=== PATIENT | female | born 1990 | race Caucasian/White ===

== ENCOUNTER 2018-11-06 00:16 | Emergency (ER) | payer OTHER ==
[~2018-11-06] VITALS: Ht 167.6 cm; Wt 99.8 kg
--- NOTE | 2018-11-06 00:20 | ED.ADGEN ---
Adult General Chief Complaint Chief Complaint ".. I think I got pink eye from my son.. it is red.. and itches.. " "It started today.. in this Lt eye'... 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 Has been exposed to sun who recently had pinkeye. Sons conjunctivitis has cleared without problem. Patient denies any history of immunosuppression. No recent travel. Is exposed ill patients. No history of trauma. No history of working with materials may fragment. Patient acuity is 20/15 in both eyes. Patient does have need of glasses for her nearsighted baseline vision. Patient does not remember her last tetanus. Patient up-to-date with other vaccinations. She has obvious left eye conjunctivitis. There is no limbus injection. Cornea is clear. Fundus is benign. Review of Systems Review of Systems Constitutional: Denies fever or chills [] Eyes: Denies change in visual acuity, redness, or eye pain [] Except with the exception of conjunctivitis and left eye HENT: Denies nasal congestion or sore throat [] Respiratory: Denies cough or shortness of breath [] Cardiovascular: No additional information not addressed in HPI [] GI: Denies abdominal pain, nausea, vomiting, bloody stools or diarrhea [] : Denies dysuria or hematuria [] Musculoskeletal: Denies back pain or joint pain [] Integument: Denies rash or skin lesions [] Neurologic: Denies headache, focal weakness or sensory changes [] Endocrine: Denies polyuria or polydipsia [] All other systems were reviewed and found to be within normal limits, except as documented in this note. Family History Family History Contributory-the exception son recently had pinkeye Current Medications Current Medications Current Medications Medications (Trade) Dose Ordered Sig/Maryan Start Time Stop Time Status Last Admin Dose Admin Diphtheria/ Tetanus/Acell Pertussis (Boostrix) 0.5 ml ONCE ONCE 11/06/18 00:45 11/06/18 01:12 DC 11/06/18 01:07 0.5 ML Erythromycin (Romycin) 0.25 inch 1X ONCE 11/06/18 00:45 11/06/18 01:12 DC 11/06/18 01:05 0.25 INCH Ketorolac Tromethamine (Acular) 1 drop 1X ONCE 11/06/18 00:45 11/06/18 01:12 DC 11/06/18 01:05 1 DROP He nursing for home meds Allergies Allergies Allergies Coded Allergies Type Severity Reaction Last Updated Verified Sulfa (Sulfonamide Antibiotics) Allergy Intermediate 11/06/18 Yes No known drug allergies Physical Exam Physical Exam Constitutional: Well developed, well nourished, no acute distress, non-toxic appearance. [] HENT: Normocephalic, atraumatic, bilateral external ears normal, oropharynx moist, no oral exudates, nose normal. [] Eyes: PERRLA, EOMI, conjunctiva normal, no discharge. [] Does have findings of conjunctivitis and left eye as per history of present illness Neck: Normal range of motion, no tenderness, supple, no stridor. [] Cardiovascular:Heart rate regular rhythm, no murmur [] Lungs & Thorax: Bilateral breath sounds clear to auscultation [] Abdomen: Bowel sounds normal, soft, no tenderness, no masses, no pulsatile masses. [] Skin: Warm, dry, no erythema, no rash. [] Back: No tenderness, no CVA tenderness. [] Extremities: No tenderness, no cyanosis, no clubbing, ROM intact, no edema. [] Neurologic: Alert and oriented X 3, normal motor function, normal sensory function, no focal deficits noted. [] Psychologic: Affect normal, judgement normal, mood normal. [] Current Patient Data Vital Signs Vital Signs Date Time Temp Pulse Resp B/P (MAP) Pulse Ox O2 Delivery O2 Flow Rate FiO2 11/06/18 00:25 98.3 85 16 100 Room Air EKG EKG [] Radiology/Procedures Radiology/Procedures [] Course & Med Decision Making Course & Med Decision Making Pertinent Labs and Imaging studies reviewed. (See chart for details). Patient do frequent hand washing. Patient to apply 1 drop of Toradol to left eye 4 times a day for irritation discomfort. Patient use a very small amount of erythromycin ointment up to 4 times a day. Patient follow-up primary care. Patient follow-up ophthalmology. Patient return if any concerns. [] Final Impression Final Impression 1. Conjunctivitis[] Dragon Disclaimer Dragon Disclaimer This electronic medical record was generated, in whole or in part, using a voice recognition dictation system. Dragon Disclaimer This chart was dictated in whole or in part using Voice Recognition software in a busy, high-work load, and often noisy Emergency Department environment. It may contain unintended and wholly unrecognized errors or omissions. Discharge Summary Visit Information Final Diagnosis Problems Medical Problems: (1) Conjunctivitis Status: Acute Brief Hospital Course Allergies Allergies Coded Allergies Type Severity Reaction Last Updated Verified Sulfa (Sulfonamide Antibiotics) Allergy Intermediate 11/06/18 Yes Vital Signs Vital Signs Date Time Temp Pulse Resp B/P (MAP) Pulse Ox O2 Delivery O2 Flow Rate FiO2 11/06/18 00:25 98.3 85 16 100 Room Air Brief Hospital Course Ms. Sorto is a 28 old female who presented with conjunctivitis in left eye Discharge Information Condition at Discharge: Improved, Stable Disposition/Orders: D/C to Home Dischare Medications Current Medications Diphtheria/ Tetanus/Acell Pertussis (Boostrix) 0.5 ml ONCE ONCE VAX IM Last administered on 11/06/18at 01:07; Admin Dose 0.5 ML; Start 11/06/18 at 00:45; Stop 11/06/18 at 01:12; Status DC Erythromycin (Romycin) 0.25 inch 1X ONCE OS Last administered on 11/06/18at 01: 05; Admin Dose 0.25 INCH; Start 11/06/18 at 00:45; Stop 11/06/18 at 01:12; Status DC Ketorolac Tromethamine (Acular) 1 drop 1X ONCE OS Last administered on at 01:05; Admin Dose 1 DROP; Start 11/06/18 at 00:45; Stop 11/06/18 at 01:12; Status DC Active Scripts Active Reported No Known Medications Prior To Admisstion (Info) Each 1 Each PRN EUFEMIA COLUNGA MD Nov 06, 2018 00:20
[2018-11-06 00:25] VITALS: BP 121/77
[2018-11-06] MEDS ORDERED: ERYTHROMYCIN 0.5% OPHTH OINTMENT 1GM TUBE. OS ONE (00:45)
[2018-11-06] MEDS ORDERED: DIPHTH,PERTUSS(ACELL),TET TOX 0.5 ML DISP.SYRIN. VAX IM ONE (00:45)
[2018-11-06] MEDS ORDERED: KETOROLAC TROMETHAMINE 0.5% OPHTH SOLUTION 3ML BOTTLE. OS ONE (00:45)
== END 2018-11-06 01:20 | disposition home or self-care (01) ==
LOC: ER 00:16
DX: H10.9 Unspecified conjunctivitis (principal); Z88.2 Allergy status to sulfonamides
CPT/HCPCS: 90471; 90715; 99283-25

== ENCOUNTER → 2019-07-31 | Outpatient (CLI) | payer OTHER ==
[2019-07-31 12:54] LABS: BASO % 1 % (0-3); EOS # 0.1 x10^3/uL (0.0-0.7); EOS % 1 % (0-3); HEMATOCRIT 39.9 % (36.0-47.0); HEMOGLOBIN 13.5 g/dL (12.0-15.5); LYMPH # 2.9 x10^3/uL (1.0-4.8); LYMPH % 38 % (24-48); MEAN CORPUSCULAR HEMOGLOBIN 31 pg (25-35); MEAN CORPUSCULAR HGB CONC 34 g/dL (31-37); MEAN CORPUSCULAR VOLUME 91 fL (79-100); MONO # 0.4 x10^3/uL (0.0-1.1); MONO % 6 % (0-9); NEUT # 4.1 x10^3uL (1.8-7.7); NEUT % 54 % (31-73); PLATELET COUNT 217 x10^3/uL (140-400); RED BLOOD COUNT 4.39 x10^6/uL (3.50-5.40); RED CELL DISTRIBUTION WIDTH 12.6 % (11.5-14.5); WHITE BLOOD COUNT 7.5 x10^3/uL (4.0-11.0)
[2019-07-31 13:22] LABS: ALBUMIN 3.6 g/dL (3.4-5.0); CALCIUM 8.8 mg/dL (8.5-10.1); CREATININE 0.6 mg/dL (0.6-1.0); POTASSIUM 3.9 mmol/L (3.5-5.1); TOTAL BILIRUBIN 0.3 mg/dL (0.2-1.0); TOTAL PROTEIN 7.3 g/dL (6.4-8.2)
== END | disposition home or self-care (01) ==
LOC: PMG 12:14
PROVIDERS: ATTEND Family Medicine
DX: Z01.810 Encounter for preprocedural cardiovascular examination (principal)
CPT/HCPCS: 36415; 80053; 84443; 85025

== ENCOUNTER → 2020-01-12 | Outpatient (CLI) | payer OTHER | END | disposition home or self-care (01) | LOC: LAB 07:31 | PROVIDERS: ATTEND Internal Medicine Cardiovascular Disease | DX: Z01.818 Encounter for other preprocedural examination (principal); Z11.59 Encounter for screening for other viral diseases | CPT/HCPCS: 87635 ==

== ENCOUNTER → 2020-03-19 | Outpatient (CLI) | payer OTHER ==
[2020-03-19 15:07] LABS: BASO % 1 % (0-3); EOS # 0.1 x10^3/uL (0.0-0.7); EOS % 1 % (0-3); HEMATOCRIT 41.1 % (36.0-47.0); LYMPH # 2.5 x10^3/uL (1.0-4.8); LYMPH % 34 % (24-48); MEAN CORPUSCULAR HEMOGLOBIN 31 pg (25-35); MEAN CORPUSCULAR HGB CONC 34 g/dL (31-37); MEAN CORPUSCULAR VOLUME 90 fL (79-100); MONO # 0.4 x10^3/uL (0.0-1.1); MONO % 6 % (0-9); NEUT # 4.4 x10^3uL (1.8-7.7); NEUT % 59 % (31-73); PLATELET COUNT 186 x10^3/uL (140-400); RED BLOOD COUNT 4.57 x10^6/uL (3.50-5.40); RED CELL DISTRIBUTION WIDTH 12.5 % (11.5-14.5); WHITE BLOOD COUNT 7.5 x10^3/uL (4.0-11.0)
[2020-03-19 15:10] LABS: ALBUMIN 3.1 g/dL (3.4-5.0); ALK PHOS 42 U/L (46-116); ALT (SGPT) 17 U/L (14-59); AMYLASE 65 U/L (25-115); ANION GAP 7 (6-14); AST (SGOT) 24 U/L (15-37); BLOOD UREA NITROGEN 8 mg/dL (7-20); BUN/CREATININE RATIO 11 (6-20); C REACTIVE PROTEIN < 0.5 mg/L (0-3.3); CALCIUM 8.4 mg/dL (8.5-10.1); CARBON DIOXIDE 29 mmol/L (21-32); CHLORIDE 106 mmol/L (98-107); CREATININE 0.7 mg/dL (0.6-1.0); GFR 98.9; GLUCOSE 95 mg/dL (70-99); LIPASE 162 U/L (73-393); POTASSIUM 3.6 mmol/L (3.5-5.1); SODIUM 142 mmol/L (136-145); TOTAL BILIRUBIN 0.3 mg/dL (0.2-1.0); TOTAL PROTEIN 6.1 g/dL (6.4-8.2)
[2020-03-19 15:18] LABS: BILIRUBIN,URINE NEG (NEG); CLARITY,URINE CLEAR; COLOR,URINE YELLOW; GLUCOSE,URINE NEG (NEG)
[2020-03-19 15:19] LABS: BACTERIA,URINE 0 /HPF (0-FEW); NITRITE,URINE NEG (NEG); RBC,URINE OCC /HPF (0-2); SQUAMOUS EPITHELIAL CELL,UR FEW /LPF; UROBILINOGEN,URINE 0.2 mg/dL (0.2 mg/dL); WBC,URINE OCC /HPF (0-4)
--- NOTE | 2020-03-19 17:32 | RAD ---
Supine and upright views of the abdomen Clinical indications: Lower abdominal pain. FINDINGS: Mild fecal retention is seen within the right side of the colon and the splenic flexure. No fecal retention is seen within the rectosigmoid region. No obstructive bowel pattern is seen. No significant air-fluid levels are seen. No free intraperitoneal air is seen. The osseous structures are intact. 2 punctate calcifications of the left side of the anatomic pelvis are seen most likely representing small calcified phleboliths but a distal left ureteral stone is possible. IMPRESSION: 2 punctate calcifications of the left anatomic pelvis are seen. Electronically signed by: Jb Naqvi MD (03/19/2020 5:30 PM) [id number]
== END ==
LOC: RAD 14:29
PROVIDERS: ATTEND Physician Assistant
DX: K59.09 Other constipation (principal)
CPT/HCPCS: 36415; 74019; 80053; 81001; 82150; 83690; 85025; 86140

== ENCOUNTER → 2020-03-21 | Outpatient (CLI) | payer OTHER | END | disposition home or self-care (01) | LOC: LAB 07:11 | PROVIDERS: ATTEND Internal Medicine Cardiovascular Disease | DX: Z20.828 Contact with and (suspected) exposure to other viral communicable diseases (principal) | CPT/HCPCS: C9803; U0003; 36415 ==

== ENCOUNTER → 2021-09-19 | Outpatient (CLI) | payer OTHER | LOC: LAB 06:40 | PROVIDERS: ATTEND Internal Medicine Cardiovascular Disease | DX: U07.1 COVID-19 (principal) | CPT/HCPCS: U0003 ==